=== PATIENT | female | born 1980 | race Caucasian/White ===

== ENCOUNTER 2019-01-31 | Emergency (ER) | payer OTHER ==
[~2019-01-31] VITALS: Ht 154.9 cm; Wt 64.6 kg
[~2019-01-31] MED LIST: AMLO5TAB4 PO; ASPI-496 PO; CYCL-259 PO; NAPR-685 PO; PNV1TABL4 PO; SULF15DR5 LEFTEYE
[2019-01-31 00:02] VITALS: BP 157/80
--- NOTE | 2019-01-31 00:10 | NUR ---
first contact with pt. pt states "eyelushes in my right eye." pt denies pain. pt's aox4. resps even and unlabored.
[2019-01-31] MEDS ORDERED: FLUORESCEIN OPHTHALMIC 1 MG STRIP ONE (00:21)
[2019-01-31] MEDS ORDERED: PROPARACAINE OPHTH 0.5%, 15ML RIGHTEYE ONE (00:30)
[2019-01-31] MEDS ORDERED: FLUORESCEIN OPHTHALMIC 1 MG STRIP RIGHTEYE ONE (00:30)
--- NOTE | 2019-01-31 00:42 | NUR ---
pt given dc instructions and script. pt's aox4. resps even and unlabored. pt amb to dc with steady gait. no acute distress at dc.
== END 2019-01-31 00:43 | disposition home or self-care (01) ==
LOC: ED 00:27
DX: S05.01XA Injury of conjunctiva and corneal abrasion without foreign body, right eye, initial encounter (principal); X58.XXXA Exposure to other specified factors, initial encounter; Y93.89 Activity, other specified; Y92.89 Other specified places as the place of occurrence of the external cause; Y99.8 Other external cause status
CPT/HCPCS: 99283

== ENCOUNTER → 2019-03-01 | Outpatient (CLI) | payer OTHER | END | disposition home or self-care (01) | LOC: CFH 15:45 | PROVIDERS: ATTEND Obstetrics & Gynecology | DX: Z12.31 Encounter for screening mammogram for malignant neoplasm of breast (principal) | CPT/HCPCS: 77067 ==